=== PATIENT | male | born 1940 | race Asian ===

== ENCOUNTER → 2016-04-20 | Outpatient (CLI) | payer MEDICARE, OTHER ==
[~2016-04-20] VITALS: Ht 170.2 cm; Wt 73.1 kg
[~2016-04-20] MED LIST: ALBU0.212 IH; ALBU8.5H IH; ALLO300T2 PO; ASCO-382 PO; ASPI-1061 PO; CAPS42.55 TP; CARB25DR OP; COLC0.6T2 PO; CYAN100072 PO; FLAX1CAP4 PO; FOLI1TAB15 PO; GEMF600T3 PO; INDO25OR2 PO; MOME17N NASAL; MONT10TA21 PO; MULT-1192 PO; OMEG-12 PO; PYRI100T2 PO; TELM40 PO
[2016-04-20 11:14] VITALS: BP 141/75
== END | disposition home or self-care (01) ==
LOC: SRCNTR 11:03
PROVIDERS: ATTEND Internal Medicine Critical Care Medicine
DX: I10 Essential (primary) hypertension (principal); J44.9 Chronic obstructive pulmonary disease, unspecified; E78.2 Mixed hyperlipidemia; J30.9 Allergic rhinitis, unspecified; M10.9 Gout, unspecified; G47.33 Obstructive sleep apnea (adult) (pediatric)
CPT/HCPCS: G0463

== ENCOUNTER → 2016-08-06 | Outpatient (CLI) | payer MEDICARE, OTHER ==
[~2016-08-06] VITALS: Ht 170.2 cm; Wt 74.5 kg
[2016-08-06 11:49] VITALS: BP 97/61
== END | disposition home or self-care (01) ==
LOC: SRCNTR 11:34
PROVIDERS: ATTEND Internal Medicine Critical Care Medicine
DX: G47.33 Obstructive sleep apnea (adult) (pediatric) (principal); M10.9 Gout, unspecified; J30.9 Allergic rhinitis, unspecified; I10 Essential (primary) hypertension; E78.2 Mixed hyperlipidemia; J44.1 Chronic obstructive pulmonary disease with (acute) exacerbation; Z87.891 Personal history of nicotine dependence
CPT/HCPCS: G0463

== ENCOUNTER → 2017-03-08 | Outpatient (CLI) | payer MEDICARE, OTHER ==
[~2017-03-08] VITALS: Ht 170.2 cm; Wt 77.0 kg
[~2017-03-08] MED LIST changes: -ALBU8.5H IH; +ALBU8.5H8 IH; -ASPI-1061 PO; +ASPI81TA33 PO; -CYAN100072 PO; -FOLI1TAB15 PO
[2017-03-08 12:50] VITALS: BP 130/73
== END | disposition home or self-care (01) ==
LOC: SRCNTR 12:49
PROVIDERS: ATTEND Internal Medicine Critical Care Medicine
DX: G47.33 Obstructive sleep apnea (adult) (pediatric) (principal); I10 Essential (primary) hypertension; E78.2 Mixed hyperlipidemia; J44.1 Chronic obstructive pulmonary disease with (acute) exacerbation; M10.9 Gout, unspecified; Z79.82 Long term (current) use of aspirin; Z87.891 Personal history of nicotine dependence; Z98.890 Other specified postprocedural states
CPT/HCPCS: G0463

== ENCOUNTER → 2018-10-25 | Outpatient (CLI) | payer MEDICARE, OTHER ==
[~2018-10-25] MED LIST changes: -ASPI81TA33 PO; +ASPI81TA87 PO; +CAPS42.513 TP; -CAPS42.55 TP; -GEMF600T3 PO; -PYRI100T2 PO
== END | disposition home or self-care (01) ==
LOC: RADPV 08:57
PROVIDERS: ATTEND Internal Medicine Pulmonary Disease
DX: J44.9 Chronic obstructive pulmonary disease, unspecified (principal); M47.814 Spondylosis without myelopathy or radiculopathy, thoracic region

== ENCOUNTER → 2019-10-30 | Outpatient (CLI) | payer MEDICARE, OTHER | END | disposition home or self-care (01) | LOC: RADPV 08:34 | PROVIDERS: ATTEND Internal Medicine | DX: M19.012 Primary osteoarthritis, left shoulder (principal); M47.816 Spondylosis without myelopathy or radiculopathy, lumbar region; M41.86 Other forms of scoliosis, lumbar region; M43.16 Spondylolisthesis, lumbar region; M48.061 Spinal stenosis, lumbar region without neurogenic claudication; M48.07 Spinal stenosis, lumbosacral region; M85.88 Other specified disorders of bone density and structure, other site; M25.712 Osteophyte, left shoulder; I70.0 Atherosclerosis of aorta | CPT/HCPCS: 72100; 73503 ==

== ENCOUNTER → 2019-11-07 | Outpatient (CLI) | payer MEDICARE, OTHER | END | disposition home or self-care (01) | LOC: RADPV 11:14 | PROVIDERS: ATTEND Internal Medicine | DX: M19.011 Primary osteoarthritis, right shoulder (principal) | CPT/HCPCS: 73030-TC ==